=== PATIENT | male | born 1985 | race Hispanic/Latino ===

== ENCOUNTER 2017-08-25 16:53 | Emergency (ER) | payer OTHER ==
[2017-08-25 17:18] VITALS: O2SAT 99
--- NOTE | 2017-08-25 17:38 | ED PDOC ---
HPI: Abdomen Time Seen by Provider: 08/25/17 17:34 Chief Complaint (Nursing): Flu-like Symptoms Chief Complaint (Provider): vomiting History Per: Patient History/Exam Limitations: no limitations Onset/Duration Of Symptoms: Hrs, Days (2) Outside of [place] travel?: No Current Symptoms Are (Timing): Better Context: Food Associated Symptoms: Diarrhea Past Medical History Reviewed: Historical Data, Nursing Documentation, Vital Signs, Unable To Obtain Vital Signs: Last Vital Signs Temp 99 F 08/25/17 17:02 Pulse 98 H 08/25/17 17:02 Resp 18 08/25/17 17:02 BP Pulse Ox 99 08/25/17 17:41 - Family History Family History: States: Unknown Family Hx - Allergies Allergies/Adverse Reactions: Allergies Allergy/AdvReac Type Severity Reaction Status Date / Time No Known Allergies Allergy Verified 08/25/17 17:02 Review of Systems ROS Statement: Except As Marked, All Systems Reviewed And Found Negative Gastrointestinal: Positive for: Diarrhea. Negative for: Abdominal Pain Physical Exam - Reviewed Vital Signs Reviewed: Yes - Physical Exam Appears: Positive for: Well, Non-toxic, No Acute Distress. Negative for: Uncomfortable Head Exam: Positive for: ATRAUMATIC, NORMAL INSPECTION, NORMOCEPHALIC Skin: Positive for: Normal Color Eye Exam: Positive for: Normal appearance Neck: Positive for: Normal, Painless ROM, Supple, Decreased ROM Cardiovascular/Chest: Positive for: Regular Rate, Rhythm. Negative for: Bradycardia, Tachycardia Respiratory: Positive for: Normal Breath Sounds. Negative for: Crackles, Rales , Rhonchi, Stridor, Wheezing, Respiratory Distress, Plerual Rub Pulses-Carotid (R): 2+ Pulses-Radial (L): 2+ Pulses-Radial (R): 2+ Gastrointestinal/Abdominal: Positive for: Normal Exam, Bowel Sounds (active in all four quadrants), Soft. Negative for: Tenderness, Distended, Guarding, Rebound, Asicites - Laboratory Results Result Diagrams: 08/25/17 17:45 08/25/17 17:45 - ECG O2 Sat by Pulse Oximetry: 99 Medical Decision Making Medical Decision Making: diarrhea for two days believes it is food related will tx with fluids blood work to r/o bacterial infx Disposition - Clinical Impression Clinical Impression: Viral gastritis - Patient ED Disposition Is Patient to be Admitted: No Doctor Will See Patient In The: Office Counseled Patient/Family Regarding: Studies Performed, Diagnosis, Need For Followup - Disposition Referrals: [facility] [Outside] Disposition: Routine/Home Disposition Time: 19:14 Condition: GOOD Additional Instructions: follow up with your PMD in 3-4 days Instructions: Gastritis (TUCKER), Gastritis Forms: [facility] ([place]an)
[2017-08-25] MEDS ORDERED: Sodium Chloride 0.9% 1,000 ML IV SCH (17:45)
[2017-08-25 18:03] LABS: BASO % 0.4 % (0.0-2.0); EOS % 0.4 % (0.0-4.0); HEMOGLOBIN 14.8 g/dL (12.0-18.0); LYMPH % 17.1 % (20.0-40.0); MEAN CELL VOLUME 85.3 fl (80.0-94.0); MEAN CORPUSCULAR HGB CONC 35.2 g/dL (33.0-37.0); MEAN PLATELET VOLUME 9.6 fl (7.2-11.7); MONO # 0.6 K/uL (0.0-0.8); MONO % 9.2 % (0.0-10.0); NEUT # 4.4 K/uL (1.8-7.0); NEUT % 72.9 % (50.0-75.0); NRBC % 0.1 % (0.0-0.0); RBC 4.94 Mil/uL (4.40-5.90); RED CELL DISTRIBUTION WIDTH 12.8 % (11.5-14.5)
[2017-08-25 18:08] LABS: ALB/GLOB RATIO 1.3 (1.0-2.1); ALBUMIN 4.1 g/dL (3.5-5.0); ALT/SGPT 118 U/L (21-72); AST/SGOT 54 U/L (17-59); BLOOD UREA NITROGEN 15 mg/dl (9-20); CALCIUM 9.2 mg/dL (8.4-10.2); GFR AFRICAN-AMERICAN > 60; GFR NON-AFRICAN AMERICAN > 60; LIPASE 21 U/L (23-300)
[2017-08-25] MEDS ORDERED: Sodium Chloride 0.9% 1,000 ML IV ONE (18:15)
[2017-08-25 19:13] VITALS: BP 107/61; PULSE 80; RESP 16; TEMP 99.3
== END 2017-08-25 19:35 | disposition home or self-care (01) ==
LOC: H.ER 16:53
DX: A08.4 Viral intestinal infection, unspecified (principal)
CPT/HCPCS: 80053; 83690; 85025; 99283; J7040